=== PATIENT | female | born 1960 | race American Indian/Alaskan Native ===

== ENCOUNTER 2017-07-25 15:56 | Emergency (ER) | payer OTHER ==
[2017-07-25] MEDS ORDERED: NORCO 5/325 PO PRN (20:50)
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
[2017-07-25] MEDS ORDERED: NORCO 5/325 PO ONE (21:33)
[2017-07-25] MEDS ORDERED: NORCO 5/325 ONE (21:36)
[2017-07-25 22:13] VITALS: BP 118/80
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
== END 2017-07-25 23:27 | disposition home or self-care (01) ==
LOC: ED 15:56
DX: S00.83XA Contusion of other part of head, initial encounter (principal); I10 Essential (primary) hypertension; V49.9XXA Car occupant (driver) (passenger) injured in unspecified traffic accident, initial encounter; Y93.89 Activity, other specified; Y99.8 Other external cause status; Y92.89 Other specified places as the place of occurrence of the external cause
CPT/HCPCS: 70450